=== PATIENT | male | born 1970 | race Caucasian/White ===

== ENCOUNTER 2018-11-13 01:29 | Emergency (ER) | payer SELFPAY ==
[~2018-11-13] VITALS: Ht 182.9 cm; Wt 108.9 kg
[~2018-11-13 01:29] MED LIST: ASPI-1169 PO; CARV12.52 PO; FURO40TA5 PO; LISI-608 PO
[2018-11-13 01:35] VITALS: BP 149/85
--- NOTE | 2018-11-13 01:52 | NUR ---
RADIOLOGY AT BEDSIDE FOR XRAY
== END 2018-11-13 04:14 | disposition home or self-care (01) ==
LOC: ER 01:37
DX: M25.511 Pain in right shoulder (principal); M79.18 Myalgia, other site; F10.10 Alcohol abuse, uncomplicated; F17.200 Nicotine dependence, unspecified, uncomplicated; Y90.9 Presence of alcohol in blood, level not specified; Z79.82 Long term (current) use of aspirin; Z98.890 Other specified postprocedural states
CPT/HCPCS: 71045-TC; 73010-TC

== ENCOUNTER 2020-07-10 20:46 | Inpatient (IN) | payer MEDICAID ==
[~2020-07-10] VITALS: Ht 182.9 cm; Wt 130.4 kg
[~2020-07-10 20:46] MED LIST changes: -LISI-608 PO; +LISI5TAB24 PO
--- NOTE | 2020-07-10 20:49 | NUR ---
PT AAOX4. BIBSELF C/O L SIDED CP, SOB, AND WEAKNESS. PT PLACED IN BED 11 ON TERMITE CONTROL SERVICE REPRESENTATIVE AND PULSE OX. LINE ESTABLISHED LAC 18G, BLOOD WORK COLLECTED, SENT TO LAB. AWAITING MD LACY AND ORDERS.
[2020-07-10 21:39] LABS: BASOPHILS # (AUTO) 0.1 /CMM (0.0-0.2); BASOPHILS % (AUTO) 0.5 % (0.0-2.0); EOSINOPHILS % (AUTO) 0.5 % (0.0-6.0); HEMATOCRIT 49 % (39-51); HEMOGLOBIN 16.1 g/dL (13.5-17.5); LYMPHOCYTES # (AUTO) 2.1 /CMM (0.8-4.8); LYMPHOCYTES % (AUTO) 13.5 % (20.0-44.0); MEAN CORPUSCULAR HGB CONC 33 g/dl (31.0-36.0); MEAN CORPUSCULAR VOLUME 100 fL (80-96); MONOCYTES # (AUTO) 1.7 /CMM (0.1-1.30); MONOCYTES % (AUTO) 11.2 % (2.0-12.0); NEUTROPHILS # (AUTO) 11.7 /CMM (1.8-8.9); NEUTROPHILS % (AUTO) 74.3 % (43.0-81.0); PLATELET COUNT (AUTO) 302 /CMM (150-450); RED BLOOD CELL COUNT(AUTO) 4.93 MIL/uL (4.5-6.0); WHITE BLOOD COUNT (AUTO) 15.7 K/uL (4.3-11.0)
[2020-07-10 21:52] LABS: CALCIUM, SERUM 9.2 mg/dL (8.5-10.1); CREATININE 1.2 mg/dL (0.6-1.3); POTASSIUM 4.3 mmol/L (3.5-5.1)
[2020-07-10 22:08] LABS: ALBUMIN 1.9 g/dL (3.4-5.0); BILIRUBIN,DIRECT 0.4 mg/dL (0.0-0.2); BILIRUBIN,TOTAL 0.6 mg/dL (0.2-1.0); D-DIMER 2.3 mg/L(FEU (0.17-0.50); TOTAL PROTEIN, SERUM 7.4 g/dL (6.4-8.2)
--- NOTE | 2020-07-10 22:24 | NUR ---
JENNIFERID SWABBED, SENT TO LAB.
--- NOTE | 2020-07-10 22:31 | NUR ---
BRANDEE DNP AT BEDSIDE
[2020-07-10] MEDS ORDERED: ACETAMINOPHEN 325 MG TABLET PO PRN (23:00)
[2020-07-10] MEDS ORDERED: Z GUARD REMEDY 2 OZ OINT TP PRN (23:00)
[2020-07-10] MEDS ORDERED: HYDROCODONE/APAP 5/325MG TABLET PO PRN (23:00)
[2020-07-10] MEDS ORDERED: NITROGLYCERIN 0.4 MG/TAB BOTTLE SL PRN (23:00)
[2020-07-10] MEDS ORDERED: MAG HYDROX/AL HYDROX/SIMETH 30 ML UDC PO PRN (23:00)
[2020-07-10] MEDS ORDERED: FUROSEMIDE 100 MG/10 ML VIAL IV ONE (23:00)
[2020-07-10] MEDS ORDERED: ONDANSETRON HCL/PF 4 MG/2 ML VIAL IVP PRN (23:00)
[2020-07-10] MEDS ORDERED: IOHEXOL-350 100 ML VIAL IV ONE (23:11)
[2020-07-10] MEDS ORDERED: IV NS 0.9% 250 ML IV ONE (23:12)
--- NOTE | 2020-07-10 23:28 | NUR ---
REC'D NEG COVID RESULTS. AWARE. CALLED NURSING SUP FOR BED
--- NOTE | 2020-07-10 23:30 | NUR ---
BROUGHT TO CT AND BACK.
--- NOTE | 2020-07-10 23:30 | NUR ---
BED ASSIGNMENT TELE 315-2
[2020-07-11] VITALS (9 sets, daily range): BP systolic 124–165; BP diastolic 70–110
--- NOTE | 2020-07-11 00:11 | NUR ---
PT TRANSFERED PER ACLS PROTOCOL
--- NOTE | 2020-07-11 00:15 | NUR ---
WEDGERSHIFT SUPERVISOR MELTING NOTES RECEIVED REPORT FROM ALEXI FINNEY RN. PATIENT ADMITTED TO TELE. PATIENT A/OX4; ABLE TO MAKE NEEDS KNOWN. ON ROOM AIR; C/O SOB UPON EXERTION. APPLIED O2 VIA N/C; TOLERATING WELL. C/O CHEST DISCOMFORT BUT REFUSED PAIN MEDICATIONS AT THIS TIME. IV TO LAC #18G; PATENT AND INTACT. SKIN IS INTACT. EXTERNAL DRIER OPERATOR READS NSR AT 99. ALL BELONGINGS ACCOUNTED FOR AND SIGNED PATIENT BELONGINGS LIST. ORIENTED PATIENT TO STAFF, ROOM, AND UNIT. SAFETY MEASURES IN PLACE: BED IN LOWEST LOCKED POSITION, SIDE RAILS UPX2, CALL LIGHT WITHIN REACH. PATIENT MEDICALLY STABLE; WILL CONTINUE PLAN OF CARE.
[2020-07-11] MEDS: TEMAZEPAM 15 MG CAPSULE PO PRN ×2 (00:48→21:05)
[2020-07-11] MEDS: LISINOPRIL (20MG) 20 MG TABLET PO SCH ×2 (00:50→08:26)
[2020-07-11] MEDS: ENOXAPARIN SODIUM 40 MG/0.4 ML DISP.SYRIN SQ SCH ×2 (00:55→21:05)
--- NOTE | 2020-07-11 01:12 | NUR ---
EDGE SANDER NOTES PATIENT C/O NOT BEING ABLE TO FALL ASLEEP AND FEELING ANXIOUS. ADMINISTERED RESTORIL ORDERED. WILL CONTINUE TO ASSESS PATIENT'S SLEEP.
[2020-07-11] MEDS: MORPHINE SULFATE INJ 2 MG/ML DISP.SYRIN IV PRN ×2 (05:59→15:48)
--- NOTE | 2020-07-11 05:59 | NUR ---
AD COMPOSITOR NOTES - PAIN PATIENT C/O 12/29 CHEST PAIN. ADMINISTERED MORPHINE ORDERED. NOTED WITH HR OF 105. WILL CONTINUE TO ASSESS PATIENT FOR PAIN.
--- NOTE | 2020-07-11 06:52 | NUR ---
PAINT ROLLER COVERS SUPERVISOR CLOSING NOTES PATIENT A/OX4; ABLE TO MAKE NEEDS KNOWN. ON ROOM AIR. O2 VIA N/C; TOLERATING WELL. DENIES PAIN OR DISCOMFORT AT THIS TIME. IV TO LAC #18G; PATENT AND INTACT. SKIN IS INTACT. EXTERNAL MEDICAL ART THERAPIST READS SINUS TACHY AT 105. SAFETY MEASURES IN PLACE: BED IN LOWEST LOCKED POSITION, SIDE RAILS UPX2, CALL LIGHT WITHIN REACH. PATIENT MEDICALLY STABLE; WILL ENDORSE PLAN OF CARE TO ONCOMING MORNING RN
[2020-07-11 07:05] LABS: BASOPHILS # (AUTO) 0.1 /CMM (0.0-0.2); BASOPHILS % (AUTO) 0.5 % (0.0-2.0); EOSINOPHILS % (AUTO) 0.8 % (0.0-6.0); HEMATOCRIT 47 % (39-51); HEMOGLOBIN 15.6 g/dL (13.5-17.5); LYMPHOCYTES # (AUTO) 2.3 /CMM (0.8-4.8); LYMPHOCYTES % (AUTO) 16.8 % (20.0-44.0); MEAN CORPUSCULAR HGB CONC 33 g/dl (31.0-36.0); MEAN CORPUSCULAR VOLUME 99 fL (80-96); MONOCYTES # (AUTO) 1.9 /CMM (0.1-1.30); MONOCYTES % (AUTO) 13.5 % (2.0-12.0); NEUTROPHILS # (AUTO) 9.4 /CMM (1.8-8.9); NEUTROPHILS % (AUTO) 68.4 % (43.0-81.0); PLATELET COUNT (AUTO) 289 /CMM (150-450); RED BLOOD CELL COUNT(AUTO) 4.78 MIL/uL (4.5-6.0); WHITE BLOOD COUNT (AUTO) 13.8 K/uL (4.3-11.0)
[2020-07-11] MEDS ORDERED: ASPI-1169 PO (07:30)
[2020-07-11] MEDS ORDERED: CARV12.52 PO (07:30)
[2020-07-11] MEDS ORDERED: LISI20TA30 PO (07:30)
[2020-07-11] MEDS ORDERED: FURO-144 PO (07:30)
--- NOTE | 2020-07-11 07:30 | NUR ---
MS/RN Opening note Patient received from shift nurse manager. A/O X4, vital signs recorded as per protocol, blood pressure elevated, will administer medications and notify MD. Heplock to left AC flushing well with normal saline, no signs of infiltration seen. Denies any pain at this time, asking for medication for anxiety. Patient made aware of need to record input and output, and stated that he would use urinal to enable output to be measured. Safety measures in place, bed in low setting, side rails X2 in upright position, brakes locked, call light within reach. Will continue to monitor and ensure safety.
[2020-07-11 07:35] LABS: CALCIUM, SERUM 8.7 mg/dL (8.5-10.1); CREATININE 1.1 mg/dL (0.6-1.3); MAGNESIUM 2.2 mg/dL (1.8-2.4); PHOSPHORUS 4.6 mg/dL (2.5-4.9); POTASSIUM 4.3 mmol/L (3.5-5.1)
[2020-07-11 07:44] LABS: THYROID STIMULATING HORMONE 1.969 uIU/mL (0.358-3.74)
[2020-07-11] MEDS: ASPIRIN EC 81 MG TABLET.DR PO SCH (08:26)
[2020-07-11] MEDS: PANTOPRAZOLE 40 MG TABLET.DR PO SCH (08:26)
[2020-07-11] MEDS: POTASSIUM CHLORIDE 10 MEQ TABLET.SA PO SCH (08:27)
--- NOTE | 2020-07-11 08:49 | NUR ---
MS/RN Hypertensive Patient noted to be hypertensive at 165/110, rechecked and still in same range. Morning blood pressure medication administered, will recheck after 30 minutes. Justino Bowden NP made aware.
[2020-07-11] MEDS ORDERED: FUROSEMIDE 40 MG/4 ML VIAL IV SCH (09:00)
[2020-07-11] MEDS: FUROSEMIDE 40 MG/4 ML VIAL IV SCH ×3 (09:30→17:04)
[2020-07-11] MEDS ORDERED: LISINOPRIL (20MG) 20 MG TABLET PO SCH (09:30)
[2020-07-11] MEDS ORDERED: ASPIRIN 81 MG TAB.CHEW PO SCH (09:30)
[2020-07-11] MEDS ORDERED: IOHEXOL-350 100 ML VIAL IV ONE (09:39)
[2020-07-11] MEDS ORDERED: IV NS 0.9% 250 ML IV ONE (09:39)
[2020-07-11] MEDS ORDERED: NITROGLYCERIN 0.4 MG/TAB BOTTLE ONE ×2 (09:39)
[2020-07-11] MEDS ORDERED: METOPROLOL TARTRATE INJ 5 MG/5 ML AMPUL ONE ×3 (09:39→10:31)
[2020-07-11] MEDS ORDERED: CT SWABBABLE VALVE TRANS SET 1 EA INFUS.SET MC ONE (09:39)
--- NOTE | 2020-07-11 09:39 | NUR ---
MS/RN S/B Dr Shin Seen by Dr Shin - patient scheduled for CT angiogram, consent form signed and placed in front of chart.
[2020-07-11] MEDS: CARVEDILOL 12.5 MG TABLET PO SCH ×2 (09:43→17:04)
--- NOTE | 2020-07-11 09:53 | NUR ---
MS/fish net maker Patient taken by wheelchair to cardiology department for CT angiogram.
[2020-07-11] MEDS ORDERED: NITROGLYCERIN 0.4 MG/TAB BOTTLE SL ONE (10:00)
[2020-07-11] MEDS: METOPROLOL TARTRATE INJ 5 MG/5 ML AMPUL IVP PRN ×10 (10:06→10:51)
--- NOTE | 2020-07-11 10:58 | NUR ---
consented to CTA heart; wake alert oriented, denies CP , admits to some anxiety; procedure explained, all questions answered; given a total of Metoprolol 5 mg IVP x 10 doses, and NTG 0.4 ng SL; tolerated procedure with VSS; report given to floor Belle RN; transferred back to floor via wheelchair
--- NOTE | 2020-07-11 11:05 | NUR ---
MS/RN Back from CT Patient back in room following CTCA.
--- NOTE | 2020-07-11 15:00 | NUR ---
MS/RN CTCA CTCA resulted as total calcuim score of 0. No further complaints of chest pain.
--- NOTE | 2020-07-11 16:00 | NUR ---
MS/RN S/B Justino Bowden FARM AGENT Seen by FARM AGENT - labs ordered for tomorrow. Made aware that patient requesting for anxiety medication. not ordered at this time.
--- NOTE | 2020-07-11 18:34 | NUR ---
MS/RN End note Patient remains in stable condition. All questions and concerns addressed. Will endorse to shift production supervisor.
[2020-07-11] MEDS: MAGNESIUM HYDROXIDE 30 ML UDC PO PRN ×2 (19:35→19:42)
[2020-07-12] VITALS: BP_SYST 147; BP_SYST 149; BP_DIAS 99
[2020-07-12] MEDS: MORPHINE SULFATE INJ 2 MG/ML DISP.SYRIN IV PRN ×2 (00:30→04:45)
[2020-07-12 04:00] VITALS: BP 161/104
[2020-07-12 04:57] VITALS: BP 161/104
--- NOTE | 2020-07-12 04:59 | NUR ---
michael notes.. alert and orientated x4 mediCATED X2 q 4 HOURS FOR GENERALIZED PAIN WITH MORPHINE 4 MG IV AND EFFECTIVE RESTORIL GIVEN AND WAS EFFECTIVE FOR 3 HOURS. VOID SMALL AMOUNTS 200ML DARK YELLOW URINE IN THE URINAL C/O CONSTIPATION, mom 30 ML GIVEN RESULTS PENDING BLOOD PRESSURE ELEVATED 161/1O4 THIS AM PATIENT IN PAIN WILL MONITOR B/P AFTER PAIN MEDICATION GIVEN. NOTED PATIENT BECOMES ANXIOUS, BUT APPEARS TO CALM DOWN WHEN BEING SPOKEN TO .AND NURSE IN THE ROOM SINUS RHYTHM TO SINUS TACHACARDIC ON THE MONITOR LAST PAIN MEDICATION GIVEN 5 AM GENERALIZED PAIN Addendum: 07/12/20 at 0543 by KAPIL RAY RN PATIENT USING THE URINAL THIS AM NOTED THE URINE IS CLEAR REDDISH IN COLOR NO CLOTS, PT IS ON LOVENOX WILL MONITOR AND SHARI CHARLES SHIFT NITIFY THE MD WHEN HE MAKES HIS ROUNDS NOTED HE IS SLEEPING ON HIS SIDE IN MORPHINE EFFECTIVE FOR THE C/O GENERALIZED PAIN.
[2020-07-12 06:18] LABS: BASOPHILS # (AUTO) 0.1 /CMM (0.0-0.2); BASOPHILS % (AUTO) 0.6 % (0.0-2.0); EOSINOPHILS % (AUTO) 0.6 % (0.0-6.0); HEMATOCRIT 51 % (39-51); HEMOGLOBIN 17.3 g/dL (13.5-17.5); LYMPHOCYTES # (AUTO) 2.4 /CMM (0.8-4.8); LYMPHOCYTES % (AUTO) 14.6 % (20.0-44.0); MEAN CORPUSCULAR HGB CONC 34 g/dl (31.0-36.0); MEAN CORPUSCULAR VOLUME 98 fL (80-96); MONOCYTES # (AUTO) 1.7 /CMM (0.1-1.30); MONOCYTES % (AUTO) 10.4 % (2.0-12.0); NEUTROPHILS # (AUTO) 11.9 /CMM (1.8-8.9); NEUTROPHILS % (AUTO) 73.8 % (43.0-81.0); PLATELET COUNT (AUTO) 375 /CMM (150-450); RED BLOOD CELL COUNT(AUTO) 5.23 MIL/uL (4.5-6.0); WHITE BLOOD COUNT (AUTO) 16.2 K/uL (4.3-11.0)
[2020-07-12 07:05] LABS: ALBUMIN 1.9 g/dL (3.4-5.0); BILIRUBIN,DIRECT 0.5 mg/dL (0.0-0.2); BILIRUBIN,TOTAL 0.9 mg/dL (0.2-1.0); CALCIUM, SERUM 9.2 mg/dL (8.5-10.1); CREATININE 1.2 mg/dL (0.6-1.3); MAGNESIUM 2.1 mg/dL (1.8-2.4); PHOSPHORUS 4.1 mg/dL (2.5-4.9); POTASSIUM 4.8 mmol/L (3.5-5.1); TOTAL PROTEIN, SERUM 7.6 g/dL (6.4-8.2)
--- NOTE | 2020-07-12 07:25 | NUR ---
HAND PAINT MIXER NOTES PATIENT IN BED ALERT ORIENTED X 4. NO ACUTE DISTRESS NOTED. BREATHING UNLABORED.DENIED ANY PAIN.IV ACCESS PATENT AND INTACT, NO BLEEDING . NO SWELLING NOTED. SAFETY MEASURES IN PLACE. CALL LIGHT WITHIN REACH. WILL CONTINUE TO MONITOR ACCORDINGLY
[2020-07-12] MEDS: PANTOPRAZOLE 40 MG TABLET.DR PO SCH (07:51)
[2020-07-12 08:00] VITALS: BP 157/89
[2020-07-12] MEDS: ASPIRIN EC 81 MG TABLET.DR PO SCH (08:26)
[2020-07-12] MEDS: POTASSIUM CHLORIDE 10 MEQ TABLET.SA PO SCH (08:26)
[2020-07-12] MEDS: CARVEDILOL 12.5 MG TABLET PO SCH ×2 (08:27→17:10)
[2020-07-12] MEDS: LISINOPRIL (20MG) 20 MG TABLET PO SCH ×3 (08:27→17:10)
--- NOTE | 2020-07-12 08:40 | NUR ---
ASSAYER HELPER NOTES PATIENT NOTED WITH BLOOD IN THE URINE, NOTIFIED CARE PARTNER GERARDO OWENS PRESENT ON THE FLOOR WITH ORDER TO COLLECT URINE SAMPLE AND HE WILL PUT ORDER IN .
[2020-07-12] MEDS ORDERED: FUROSEMIDE 40 MG TABLET PO SCH (09:00)
--- NOTE | 2020-07-12 09:11 | NUR ---
LIME FILTER OPERATOR NOTES LISINOPRIL NON ADMINISTERED ON NEW ORDER MEDICATION ALREADY GIVEN THIS AM ON PREVIOUS ORDER.
[2020-07-12 09:56] LABS: BAND % (MANUAL) 1 % (0.0-5.0); LYMPHOCYTES % (MANUAL) 10 % (16-48); MONOCYTES % (MANUAL) 15 % (0-11.0); NEUTROPHILS % (MANUAL) 74 (42-76)
--- NOTE | 2020-07-12 10:25 | NUR ---
CNA INSTRUCTOR NOTES URINE SPECIMEN COLLECTED , CALLED LABORATORY FOR SOAP SLABBER
[2020-07-12 13:26] LABS: BILIRUBIN,URINE SMALL (NEGATIVE); COLOR,URINE RED (YELLOW); LEUKOCYTE ESTERASE ,URINE NEGATIVE (NEGATIVE); NITRITE, URINE NEGATIVE (NEGATIVE); PROTEIN,URINE >=300 mg/dl (NEGATIVE); UGLUCOSE NEGATIVE (NEGATIVE); UROBILINOGEN,URINE 0.2 EU/dL (0.2)
[2020-07-12 13:36] LABS: BACTERIA,URINE None seen /HPF (None Seen); RBC,URINE TOO NUMEROUS TO COUN /HPF (0-2); SQUAMOUS EPITHELIAL CELL,UR Few /HPF (None Seen); WBC,URINE 0-2 /HPF (0-3)
--- NOTE | 2020-07-12 13:49 | NUR ---
DIRECTOR OF RESTAURANT NOTES URINALYSIS RESULTED RELAYED TO GAGE OWENS, NO NEW ORDER MADE AT THIS TIME
--- NOTE | 2020-07-12 14:30 | NUR ---
Channel Installer Consult: Channel Installer consult requested for substance use. Patient is a 50-year-old, male. SW met the patient in his hospital room, on the med-surg unit. Patient is alert and oriented x4. Patient is well-groomed and ambulatory. Patient presents lethargic. Patient was admitted on 07/10/20 for chest pain. SW assessed patients history of substance use. Patient stated that he drinks alcohol three to four times a week and last had a drink a week ago. Patient stated that he used drugs 5 years ago. Patient denied any history of mental illness. Patient is independent with his ADLs. Patient currently lives at [address] [place] [address]. Patient denies any current hallucinations and delusions. Patient denies any current thoughts of suicide or homicide. SW asked the patient if he wanted any addiction resources for drugs and alcohol and patient declined. PLAN: Patient stated he will be returning to his prior living arrangements at his home. Patient stated that his friend Chirag ([phone]) may be able to pick him up at the time of discharge. SW will follow up with nursing, as needed.
[2020-07-12] MEDS ORDERED: LISI20TA30 PO (14:33)
[2020-07-12 16:00] VITALS: BP 156/89
[2020-07-12] MEDS ORDERED: TAMS-12 PO (16:01)
--- NOTE | 2020-07-12 16:10 | NUR ---
MS RN NOTES CT OF ABDOMEN AND PELVIS RESULTED, BLAST FURNACE CHECKER GERARDO OWENS PRESENT ON THE FLOOR AWARE OF THE RESULT, SAID OK TO DISCHARGE HOME ONCE THE LIFE VEST DELIVERED TO PATIENT TONIGHT.
[2020-07-12 17:10] VITALS: BP 156/87
--- NOTE | 2020-07-12 18:53 | NUR ---
COMMUNITY CENTER WORKER NOTES PATIENT IN BED ALERT ORIENTED X 4. NO ACUTE DISTRESS NOTED. BREATHING UNLABORED.DENIED ANY PAIN. NO SWELLING NOTED. NEEDS ATTENDED AND ANTICIPATED. SAFETY MEASURES IN PLACE. CALL LIGHT WITHIN REACH. PATIENT FOR DISCHARGE TONIGHT ONCE THE LIFE VEST RECEIVED AND PUT ON , WILL ENDORSE TO NIGHT NURSE FOR CONTINUITY OF CARE AND DISCHARGE.
--- NOTE | 2020-07-12 19:45 | NUR ---
RN NOTES Received pt. ready to be discharge, already wearing his life vest, Omid from [employer] already explained to the patient regarding his Life vest.. pt is not in distress. denies pain, call light within reach, siderailsupx2, will continue to monitor
--- NOTE | 2020-07-12 19:50 | NUR ---
RN NOTES PT. left via private car, his pt's picked him up.. pt left on stable condition
== END 2020-07-12 19:50 | disposition home or self-care (01) | DRG 194 ==
LOC: ER 20:48 → TELE 23:31
PROVIDERS: ADMIT Nurse Practitioner Acute Care; ATTEND Nurse Practitioner Family
DX: I11.0 Hypertensive heart disease with heart failure (principal); I50.23 Acute on chronic systolic (congestive) heart failure; E87.1 Hypo-osmolality and hyponatremia; E66.2 Morbid (severe) obesity with alveolar hypoventilation; Z68.37 Body mass index [BMI] 37.0-37.9, adult; D72.829 Elevated white blood cell count, unspecified; I27.20 Pulmonary hypertension, unspecified; K21.9 Gastro-esophageal reflux disease without esophagitis; Z79.82 Long term (current) use of aspirin; F17.210 Nicotine dependence, cigarettes, uncomplicated; E78.5 Hyperlipidemia, unspecified; Z91.14 Patient's other noncompliance with medication regimen; R74.01 Elevation of levels of liver transaminase levels; Z71.3 Dietary counseling and surveillance; N13.2 Hydronephrosis with renal and ureteral calculous obstruction; Z72.89 Other problems related to lifestyle; Q60.0 Renal agenesis, unilateral; Z90.5 Acquired absence of kidney; I21.A1 Myocardial infarction type 2; R73.9 Hyperglycemia, unspecified; F19.11 Other psychoactive substance abuse, in remission; I25.10 Atherosclerotic heart disease of native coronary artery without angina pectoris; I34.0 Nonrheumatic mitral (valve) insufficiency; Z20.822 Contact with and (suspected) exposure to COVID-19; I42.9 Cardiomyopathy, unspecified; Z68.39 Body mass index [BMI] 39.0-39.9, adult
CPT/HCPCS: 36415; 71045-TC; 75574; 80048-TC; 80061-TC; 80076-TC; 81001; 83735-TC; 83880; 84100-TC; 84300-TC; 84443-TC; 84484-TC; 85025-TC; 85378-TC; 85730-TC; 87081-TC; 93307-TC; 93970-TC; 94799-TC; C9803; G0378; G0480; J1650; J1940; J2270; J3490; J7050; Q9967

== ENCOUNTER 2020-07-16 12:15 | Inpatient (IN) | payer MEDICAID ==
[~2020-07-16] VITALS: Ht 188 cm; Wt 124.4 kg
[~2020-07-16 12:15] MED LIST changes: +FURO-144 PO; -FURO40TA5 PO; +LISI20TA30 PO; -LISI5TAB24 PO; +TAMS-12 PO
--- NOTE | 2020-07-16 12:22 | NUR ---
PT TO ER BED 4. AAOX4. NOT IN RESP DISTRESS, BREATHING EVEN AND UNLABORED. AMBULATORY. CAME IN FOR L SIDED CHEST PAIN RADIATING TO L ARM 01/28 SINCE 0800. WAS AT THE BEDSIDE. EKG BEING DONE. PT ON MONITOR. IV TO R AC 18G. BLOOD DRAWNA DN SENT TO LAB
--- NOTE | 2020-07-16 12:23 | NUR ---
Paged Justino Bowden
[2020-07-16] MEDS ORDERED: ONDANSETRON HCL/PF 4 MG/2 ML VIAL IV ONE (12:30)
[2020-07-16] MEDS ORDERED: MORPHINE SULFATE INJ 2 MG/ML DISP.SYRIN IV ONE (12:30)
[2020-07-16] MEDS ORDERED: ONDANSETRON HCL/PF 4 MG/2 ML VIAL ONE (12:35)
[2020-07-16] MEDS ORDERED: MORPHINE SULFATE INJ 4 MG/ML DISP.SYRIN ONE (12:35)
[2020-07-16 12:42] LABS: CALCIUM, SERUM 9.4 mg/dL (8.5-10.1); CREATININE 1.2 mg/dL (0.6-1.3); POTASSIUM 4.4 mmol/L (3.5-5.1)
[2020-07-16 12:47] LABS: ALBUMIN 2.1 g/dL (3.4-5.0); BASOPHILS # (AUTO) 0.1 /CMM (0.0-0.2); BASOPHILS % (AUTO) 0.7 % (0.0-2.0); BILIRUBIN,DIRECT 0.3 mg/dL (0.0-0.2); BILIRUBIN,TOTAL 0.5 mg/dL (0.2-1.0); EOSINOPHILS % (AUTO) 0.9 % (0.0-6.0); HEMATOCRIT 50 % (39-51); HEMOGLOBIN 16.8 g/dL (13.5-17.5); LYMPHOCYTES # (AUTO) 1.6 /CMM (0.8-4.8); LYMPHOCYTES % (AUTO) 9.8 % (20.0-44.0); MEAN CORPUSCULAR HGB CONC 34 g/dl (31.0-36.0); MEAN CORPUSCULAR VOLUME 97 fL (80-96); MONOCYTES # (AUTO) 1.3 /CMM (0.1-1.30); MONOCYTES % (AUTO) 8.2 % (2.0-12.0); NEUTROPHILS # (AUTO) 12.9 /CMM (1.8-8.9); NEUTROPHILS % (AUTO) 80.4 % (43.0-81.0); PLATELET COUNT (AUTO) 408 /CMM (150-450); RED BLOOD CELL COUNT(AUTO) 5.17 MIL/uL (4.5-6.0); TOTAL PROTEIN, SERUM 7.3 g/dL (6.4-8.2); WHITE BLOOD COUNT (AUTO) 16.1 K/uL (4.3-11.0)
--- NOTE | 2020-07-16 14:03 | NUR ---
urine collected and sent to lab
[2020-07-16 14:06] LABS: BILIRUBIN,URINE Negative (NEGATIVE); COLOR,URINE YELLOW (YELLOW); LEUKOCYTE ESTERASE ,URINE Small (NEGATIVE); NITRITE, URINE Negative (NEGATIVE); PROTEIN,URINE >=300 mg/dl (NEGATIVE); UGLUCOSE Negative (NEGATIVE)
[2020-07-16 14:21] LABS: BACTERIA,URINE 2+ /HPF (None Seen); SQUAMOUS EPITHELIAL CELL,UR Few /HPF (None Seen)
[2020-07-16] MEDS ORDERED: CEFTRIAXONE 1GM BAG (ER ONLY) 50 ML IV ONE (14:40)
[2020-07-16] MEDS ORDERED: CEFTRIAXONE 1GM BAG (ER ONLY) 1 GM/50 ML PIGGYBACK IV ONE (15:00)
--- NOTE | 2020-07-16 16:08 | NUR ---
REPORT GIVEN TO KIT CALVERT FOR PABLITO
[2020-07-16] MEDS ORDERED: ZOLPIDEM TARTRATE 5 MG TABLET PO PRN (16:30)
[2020-07-16] MEDS ORDERED: ONDANSETRON HCL/PF 4 MG/2 ML VIAL IVP PRN (16:30)
[2020-07-16] MEDS ORDERED: Z GUARD REMEDY 2 OZ OINT TP PRN (16:30)
[2020-07-16] MEDS ORDERED: MAGNESIUM HYDROXIDE 30 ML UDC PO PRN (16:30)
[2020-07-16] MEDS ORDERED: HYDROCODONE/APAP 5/325MG TABLET PO PRN ×2 (16:30→17:00)
[2020-07-16] MEDS ORDERED: ACETAMINOPHEN 325 MG TABLET PO PRN (16:30)
[2020-07-16] MEDS ORDERED: MAG HYDROX/AL HYDROX/SIMETH 30 ML UDC PO PRN (16:30)
[2020-07-16] MEDS ORDERED: HYDROCODONE/APAP 5/325MG TABLET ONE (16:35)
--- NOTE | 2020-07-16 16:43 | NUR ---
PT VERBALIZED THAT HE IS HAVING PAIN AGAIN. MD MADE AWARE. VERBAL ORDER RECEIVED TO GIVE NORCO 5/325MG PO X 1 DOSE. NOTED AND CARRIED OUT
--- NOTE | 2020-07-16 17:13 | NUR ---
PT TRANSPROTED TO UNIT [place] WITH EMT AND RN AT BEDSIDE W/ ACLS PROTOCOL. NAD NOTED DURING TRANSPORT. PT AMBULATED FROM GURNEY TO BED ON STEADY GAIT W/O ASSIST.
--- NOTE | 2020-07-16 17:23 | NUR ---
OCCUPATIONAL THERAPY DEPARTMENT CHAIR NOTE RECEIVED PATIENT ONTO ROOM 312-2. A/O X3 AND SWEDISH SPEAKING. ON RA WITH NO SOB OS RESPIRATORY DISTRESS PRESENT. ON EXTERNAL MONITOR. NO EDEMA PRESENT. AMBULATORY WITH BATHROOM PRIVILEGES. STEADY GAIT. SKIN IS INTACT. HL PRESENT ON R AC 18 G. SAFETY MEASURES IN PLACE. SIDE RAILS RAISED. BED LOWERED. CALL LIGHT WITHIN REACH. WILL CONTINUE TO MONITOR.
[2020-07-16] MEDS: FUROSEMIDE 40 MG TABLET PO SCH (18:46)
[2020-07-16] MEDS: TAMSULOSIN 0.4 MG CAP.SR.24H PO SCH (18:47)
[2020-07-16] MEDS: LISINOPRIL (20MG) 20 MG TABLET PO SCH (18:47)
[2020-07-16] MEDS: ASPIRIN 81 MG TAB.CHEW PO SCH (18:47)
[2020-07-16] MEDS: CARVEDILOL 12.5 MG TABLET PO SCH (18:47)
--- NOTE | 2020-07-16 18:53 | NUR ---
RN CLOSING NOTE RECEIVED PATIENT ONTO ROOM 312-2. A/O X3 AND NORWEGIAN SPEAKING. ON RA WITH NO SOB OS RESPIRATORY DISTRESS PRESENT. ON EXTERNAL MONITOR. NO EDEMA PRESENT. AMBULATORY WITH BATHROOM PRIVILEGES. STEADY GAIT. SKIN IS INTACT. HL PRESENT ON R AC 18 G. ROUTINE MEDS GIVEN. SAFETY MEASURES IN PLACE. SIDE RAILS RAISED. BED LOWERED. CALL LIGHT WITHIN REACH. REPORT TO BE GIVEN TO NIGHT NURSE FOR PABLITO.
--- NOTE | 2020-07-16 19:25 | NUR ---
RN OPENING NOTES RECEIVED PT IN BED, A/O X4. ON ROOM AIR, NO RESP DISTRESS OR SOB NOTED. BREATHING EVEN AND UNLABORED PT ON TELE MONITORING PRESENTS WITH NSR WITH HEART RATE OF 74, PT HAS RIGHT IV AC, FLUSHED. PT IS AMBULATORY WITH STEADY GAIT. PT C/O PAIN AND SAYS MORPHINE IS EFFECTIVE, TOLERABLE AT THIS TIME 09/28 WILL REQUEST MORE MEDICATION WHEN IT BECOMES INTOLERABLE. SAFETY MEASURES IN PLACE. HOB ELEVATED. SIDE RAILS UP X2, BED LOCKED IN LOWEST POSITION WITH BED ALARM ON. CALL LIGHT WITHIN REACH, WILL CONT TO MONITOR CLOSELY
[2020-07-16 20:00] VITALS: BP 146/82
[2020-07-16] MEDS ORDERED: CEFTRIAXONE 1 G in IV D5W 50 ML IV SCH (20:30)
--- NOTE | 2020-07-16 20:45 | NUR ---
UROLOGIST NAIMA AT BEDSIDE DISCUSSING POSSIBLE PROCEDURE TOMORROW
[2020-07-16] MEDS: MORPHINE SULFATE INJ 2 MG/ML DISP.SYRIN IV PRN (22:08)
[2020-07-17] VITALS: BP 115/66
[2020-07-17] MEDS ORDERED: CEFTRIAXONE 1 G in IV D5W 50 ML IV SCH ×3 (01:04→15:00)
[2020-07-17] MEDS ORDERED: CEFTRIAXONE 1 G VIAL ONE (01:41)
--- NOTE | 2020-07-17 01:45 | NUR ---
was unable to give medication rocephin at specified time due to pharmacy holding for duplicate order. clarified orders with dr chavez regarding admin of abx rocephin when pt has received one dose in the ED and another dose for tomorrow, okay to give another dose as pt has procedure tomorrow. notified pharmacy. spoke with homar. medications verified, ok to give. charger operator helper aware. will cont to monitor.
[2020-07-17] MEDS: MORPHINE SULFATE INJ 2 MG/ML DISP.SYRIN IV PRN ×2 (02:27→10:31)
[2020-07-17 04:00] VITALS: BP 131/57
[2020-07-17 06:27] LABS: BASOPHILS # (AUTO) 0.1 /CMM (0.0-0.2); BASOPHILS % (AUTO) 0.6 % (0.0-2.0); EOSINOPHILS % (AUTO) 1.1 % (0.0-6.0); HEMATOCRIT 48 % (39-51); HEMOGLOBIN 15.8 g/dL (13.5-17.5); LYMPHOCYTES % (AUTO) 16.2 % (20.0-44.0); MEAN CORPUSCULAR HGB CONC 33 g/dl (31.0-36.0); MEAN CORPUSCULAR VOLUME 99 fL (80-96); MONOCYTES # (AUTO) 1.3 /CMM (0.1-1.30); MONOCYTES % (AUTO) 10.7 % (2.0-12.0); NEUTROPHILS # (AUTO) 8.9 /CMM (1.8-8.9); NEUTROPHILS % (AUTO) 71.4 % (43.0-81.0); PLATELET COUNT (AUTO) 358 /CMM (150-450); RED BLOOD CELL COUNT(AUTO) 4.86 MIL/uL (4.5-6.0); WHITE BLOOD COUNT (AUTO) 12.4 K/uL (4.3-11.0)
[2020-07-17 06:40] LABS: CALCIUM, SERUM 9.5 mg/dL (8.5-10.1); CREATININE 1.1 mg/dL (0.6-1.3); MAGNESIUM 2.2 mg/dL (1.8-2.4); POTASSIUM 4.1 mmol/L (3.5-5.1)
[2020-07-17] MEDS ORDERED: ANESTHESIA TRAY IN PYXIS 1 EA TRAY MC ONE (06:46)
[2020-07-17] MEDS ORDERED: IOHEXOL 240MG/ML 0 ML IV ONE (06:56)
--- NOTE | 2020-07-17 07:03 | NUR ---
PT WAS PICKED UP BY GAYATRI FROM SURGERY TO BE TAKEN TO OR. BELONGINGS REMAIN IN ROOM. PT ON ROOM AIR, NO RESP DISTRESS NO SOB NOTED. PT HAD NO B,M, VOID X2. WILL GIVE REPORT TO ONCOMING NURSE FOR CONTINUATION OF CARE.
--- NOTE | 2020-07-17 07:27 | NUR ---
CUSTOMER CONTACT SALES ASSOCIATE OPENING NOTE PATIENT IS CURRENTLY ON OR FOR CYSTOSCOPY, FLUOROSCOPY, L JJ STENT PLACEMENT.
[2020-07-17] MEDS ORDERED: MIDAZOLAM HCL 2 MG/2ML VIAL ONE (07:33)
[2020-07-17] MEDS ORDERED: FENTANYL PF 100MCG/2ML AMPUL ONE (07:33)
[2020-07-17] MEDS ORDERED: ROCURONIUM BROMIDE 50 MG/5 ML ONE (07:45)
--- NOTE | 2020-07-17 09:32 | NUR ---
CASE MANAGEMENT DIRECTOR NOTE PATIENT IS BACK FROM SURGERY. PT IS A/O X4. ON NC, O2 AT 2 LPM. NO SOB NOTED. IN NO APPARENT DISTRESS. DENIES ANY PAIN OR DISCOMFORT AT THIS TIME. VS BP 117 OK 87 RR 16 T 97.8 SA02 98% RESUME MEDS AND RESUME DIET ORDERED. SAFETY MEASURES MAINTAINED. BED IN LOWEST POSITION, BRAKES LOCKED. SIDE RAILS UP X2. CALL LIGHT WITHIN REACH. WILL CONTINUE PLAN OF CARE.
[2020-07-17 09:35] VITALS: BP 117/87
[2020-07-17] MEDS: LISINOPRIL (20MG) 20 MG TABLET PO SCH (09:40)
[2020-07-17] MEDS: CARVEDILOL 12.5 MG TABLET PO SCH (09:40)
[2020-07-17] MEDS: ASPIRIN 81 MG TAB.CHEW PO SCH (09:40)
[2020-07-17] MEDS: TAMSULOSIN 0.4 MG CAP.SR.24H PO SCH (09:40)
[2020-07-17] MEDS: FUROSEMIDE 40 MG TABLET PO SCH (09:40)
[2020-07-17] MEDS ORDERED: CEPH500T PO (10:39)
[2020-07-17] MEDS ORDERED: HYDR-3972 PO (10:39)
[2020-07-17 12:00] VITALS: BP 111/74
--- NOTE | 2020-07-17 13:20 | NUR ---
AUTOMOBILE TAILLIGHT ASSEMBLER NOTE PATIENT WAS DISCHARGED. VS 117/87 HI 76 RR 18 T 97.6 HEALTH TEACHING/DISCHARGE/FF UP INSTRUCTIONS GIVEN TO THE PATIENT. VERBALIZED UNDERSTANDING. IV, TELE BOX AND WRISTBAND REMOVED. PICKED UP BY HIS MOM.
== END 2020-07-17 13:20 | disposition home or self-care (01) | DRG 465 ==
LOC: ER 12:17 → TELE 15:29
PROVIDERS: ADMIT Nurse Practitioner Family; ATTEND Nurse Practitioner Family
PROC: 0T778DZ Dilation of Left Ureter with Intraluminal Device, Via Natural or Artificial Opening Endoscopic (ICD-10-PCS; principal; 2020-07-17)
PROC: BT17YZZ Fluoroscopy of Left Ureter using Other Contrast (ICD-10-PCS; 2020-07-17)
DX: N13.2 Hydronephrosis with renal and ureteral calculous obstruction (principal); I11.0 Hypertensive heart disease with heart failure; I50.23 Acute on chronic systolic (congestive) heart failure; I25.2 Old myocardial infarction; F17.210 Nicotine dependence, cigarettes, uncomplicated; E78.5 Hyperlipidemia, unspecified; E66.01 Morbid (severe) obesity due to excess calories; Z79.82 Long term (current) use of aspirin; E87.5 Hyperkalemia; F17.200 Nicotine dependence, unspecified, uncomplicated; Z20.822 Contact with and (suspected) exposure to COVID-19; Q60.0 Renal agenesis, unilateral; Z79.899 Other long term (current) drug therapy; Z87.442 Personal history of urinary calculi; Z90.5 Acquired absence of kidney; E83.52 Hypercalcemia; N39.0 Urinary tract infection, site not specified; F19.10 Other psychoactive substance abuse, uncomplicated; Z98.890 Other specified postprocedural states; I42.9 Cardiomyopathy, unspecified; N17.0 Acute kidney failure with tubular necrosis; N13.9 Obstructive and reflux uropathy, unspecified; I21.A1 Myocardial infarction type 2; B96.89 Other specified bacterial agents as the cause of diseases classified elsewhere
CPT/HCPCS: 36415; 71045-TC; 74018; 80048-TC; 80076-TC; 81001; 83690-TC; 83735-TC; 83880; 84484-TC; 85025-TC; 85730-TC; 87081-TC; 87086-TC; 87186-TC; A4217; C1769; C2617; G0378; J0330; J0696; J1100; J2250; J2270; J2405; J3010; J3490; J7050; J7060; Q9966

== ENCOUNTER 2023-01-15 21:36 | Emergency (ER) | payer MEDICAID ==
[~2023-01-15] VITALS: Ht 182.9 cm; Wt 108.9 kg
[~2023-01-15 21:36] MED LIST changes: +CEPH500T PO; +HYDR-3972 PO
[2023-01-15] MEDS ORDERED: ACETAMINOPHEN 325 MG TABLET PO ONE (22:30)
[2023-01-15] MEDS ORDERED: ACETAMINOPHEN 325 MG TABLET ONE (22:36)
[2023-01-15] MEDS ORDERED: IV NS 0.9% 250 ML IV ONE (22:38)
[2023-01-15] MEDS ORDERED: IOHEXOL-300 100 ML VIAL IV ONE (22:38)
[2023-01-16] MEDS ORDERED: DICL1KIT14 TP (00:11)
[2023-01-16] MEDS ORDERED: ACET-3478 PO (00:13)
[2023-01-16] MEDS ORDERED: IV NS 0.9% 1,000 ML IV ONE (00:30)
[2023-01-16 00:49] LABS: BASOPHILS % (AUTO) 0.6 % (0.0-2.0); EOSINOPHILS # (AUTO) 0.1 K/uL (0.0-0.7); EOSINOPHILS % (AUTO) 1.6 % (0.0-6.0); HEMATOCRIT 49 % (39-51); HEMOGLOBIN 16.4 g/dL (13.5-17.5); LYMPHOCYTES # (AUTO) 1.7 K/uL (0.8-4.8); LYMPHOCYTES % (AUTO) 21.9 % (20.0-44.0); MEAN CORPUSCULAR HEMOGLOBIN 35 PG (26.0-33.0); MEAN CORPUSCULAR HGB CONC 34 g/dl (31.0-36.0); MEAN CORPUSCULAR VOLUME 103 fL (80-96); MONOCYTES # (AUTO) 0.8 K/uL (0.1-1.30); MONOCYTES % (AUTO) 9.9 % (2.0-12.0); NEUTROPHILS # (AUTO) 5.1 K/uL (1.8-8.9); PLATELET COUNT (AUTO) 229 K/uL (150-450); RED CELL DISTRIBUTION WIDTH 13.2 % (11.5-15.0); WHITE BLOOD COUNT (AUTO) 7.8 K/uL (4.3-11.0)
[2023-01-16] MEDS ORDERED: HYDROCODONE/APAP 10/325MG TABLET PO ONE (01:00)
[2023-01-16] MEDS ORDERED: HYDROCODONE/APAP 10/325MG TABLET ONE (01:02)
[2023-01-16 01:29] LABS: CALCIUM, SERUM 9.2 mg/dL (8.5-10.1); CREATININE 1.5 mg/dL (0.6-1.3); POTASSIUM 4.2 mmol/L (3.5-5.1)
[2023-01-16 01:37] LABS: ALBUMIN 2.9 g/dL (3.4-5.0); BILIRUBIN,TOTAL 0.2 mg/dL (0.2-1.0); TOTAL PROTEIN, SERUM 7.5 g/dL (6.4-8.2)
[2023-01-16 02:05] VITALS: BP 140/77; TEMP 98.3; O2SAT 98
== END 2023-01-16 02:06 | disposition home or self-care (01) ==
LOC: ER 21:38
DX: M54.6 Pain in thoracic spine (principal); I50.9 Heart failure, unspecified; F17.200 Nicotine dependence, unspecified, uncomplicated; Z79.82 Long term (current) use of aspirin; Z79.899 Other long term (current) drug therapy; Z98.890 Other specified postprocedural states; V89.2XXA Person injured in unspecified motor-vehicle accident, traffic, initial encounter; Y93.89 Activity, other specified; Y92.89 Other specified places as the place of occurrence of the external cause; Y99.8 Other external cause status
CPT/HCPCS: 99285; 71260; 74177; 96360; 85025; 36415; 80053; J7050; Q9967; J7030